=== PATIENT | female | born 1995 | race Caucasian/White ===

== ENCOUNTER 2019-05-08 16:23 | Emergency (ER) | payer BC ==
[~2019-05-08] VITALS: Ht 160 cm; Wt 59.0 kg
[2019-05-08 16:41] VITALS: BP_SYST 125
[2019-05-08 19:12] VITALS: BP_SYST 125
== END 2019-05-08 19:12 | disposition home or self-care (01) ==
LOC: SED 16:23
DX: S09.90XA Unspecified injury of head, initial encounter (principal); R03.0 Elevated blood-pressure reading, without diagnosis of hypertension; W22.8XXA Striking against or struck by other objects, initial encounter; Y93.89 Activity, other specified; Y92.89 Other specified places as the place of occurrence of the external cause; Y99.8 Other external cause status
CPT/HCPCS: 70450-TC; 99284